=== PATIENT | female | born 1965 ===

== ENCOUNTER 2020-01-11 09:00 | Inpatient (IN) | payer MEDICARE, OTHER ==
[2020-01-11 11:10] VITALS: BP 114/73
[2020-01-11] MEDS ORDERED: Pneumococcal Vaccine 0.5 mL Vial IM ONE (12:53)
[2020-01-11] MEDS ORDERED: Maalox 30 mL Cup PO PRN (13:02)
[2020-01-11] MEDS ORDERED: Magnesium Hydroxide (MOM) 30 mL UDC PO PRN (13:02)
--- NOTE | 2020-01-11 17:33 | Psychiatric Evaluation ---
DATE OF SERVICE: HISTORY OF PRESENT ILLNESS: The patient is a 54-year-old female here for auditory hallucinations telling her to kill herself. The patient states that she has been off of her medications for about 4 days and that the voices were getting increasingly incessant and numerous. The patient states that she had planned on overdosing on all of her medications. The patient is somewhat evasive about her noncompliance, states that they were effective, but that she had stopped them because "I wanted to lose weight." MENTAL STATUS EXAMINATION: GENERAL APPEARANCE AND BEHAVIOR: The patient is resting comfortably in bed, not in acute distress, good eye contact, cooperative with interview. Speech is normal, rate, rhythm and tone. Mood and affect: The patient describes her mood as anxious and depressed. Affect is congruent. Thought process and thought content: The patient endorsing suicidal ideations to overdose on pills, endorsing command hallucinations telling her to do so. Insight and judgment is fair. DIAGNOSTIC IMPRESSION: Schizoaffective disorder by history. PLAN: Would recommend restarting patient on her home medications. The patient states that she was stable on Invega; however, it is not on formulary here, so we will change that to a Risperdal equivalent dose. JOB# [id number]
[2020-01-12] MEDS: Levothyroxine 0.088 Mg Tab PO SCH (06:48)
[2020-01-12] MEDS: Multivitamin Tab PO SCH (09:25)
--- NOTE | 2020-01-12 14:33 | Consultation ---
DATE OF CONSULTATION: CHIEF COMPLAINT: Hearing voices. 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 The patient was hearing voices. The patient was recently weaned off her Latuda and started having decompensation. PAST MEDICAL HISTORY: Jose Angel thyroiditis. PAST SURGICAL HISTORY: None. MEDICATIONS: Reviewed. ALLERGIES: None. PHYSICAL EXAMINATION: VITAL SIGNS: Temperature is 97.9, pulse 80, respirations 12, blood pressure is 100/64. HEENT: Normocephalic, atraumatic head exam. NECK: Supple. CARDIOVASCULAR: Regular rate and rhythm. LUNGS: Decreased breath sounds. ABDOMEN: Soft, nontender. EXTREMITIES: No edema, cyanosis or clubbing. Cranial nerve exam is grossly intact. ASSESSMENT AND PLAN: 1. Jose Angel's thyroiditis. 2. Delusional thinking. We will get a COVID test, CBC, chemistries and TSH. JOB# [id number] [facility]
[2020-01-12] MEDS ORDERED: Haloperidol Lactate 5 mg/mL 1mL Vial IM ONE (18:23)
[2020-01-12] MEDS ORDERED: Haloperidol Lactate 5 mg/mL 1mL Vial ONE (18:30)
--- NOTE | 2020-01-12 18:45 | Progress Notes ---
DATE: 01/12/2020 SUBJECTIVE: A 54-year-old female here for hallucinations and voices, was paranoid, feeling that people in her neighborhood were conspiring against her. She states she was going out on the streets and screaming to the neighbors to stop bothering her, harassing her. Stating the voices threaten her, talking about computer hacks, neighborhood people planning against her. History of bipolar, "the voices drive me crazy". Ten previous psychiatric admissions. History of bipolar versus schizoaffective, not rosario for safety. Extensive time spent with the patient, speaking with her, getting history. The patient was born in [place]. , no kids. History of being on Latuda, but noting it is not really helping her. History of THC use. Medications were reviewed. Labs reviewed. Vitals were reviewed. ASSESSMENT: The patient remains symptomatic, ongoing symptoms, safety concerns. PLAN: We will continue inpatient monitoring. The patient is still manic, still with voices, perceptual disturbances. We will restart dosing of Risperdal and add lithium to her regimen. JOB# [id number]
[2020-01-13 04:14] LABS: A1C 5.2 % (4.8-5.6)
[2020-01-13] MEDS: Levothyroxine 0.088 Mg Tab PO SCH (06:50)
[2020-01-13] MEDS ORDERED: risperiDONE 1 mg/mL 30 mL Bottle PO ONE (08:10)
[2020-01-13] MEDS: Multivitamin Tab PO SCH (08:53)
[2020-01-13 11:10] LABS: CHOLESTEROL 188 mg/dL (<200); LDL CHOLESTEROL 100 mg/dL (0-129); TRIGLYCERIDES 73 mg/dL (30-150)
--- NOTE | 2020-01-13 18:22 | Internal Medicine Prog Note ---
Internal Medicine Subjective - Subjective Service Date: 01/13/20 Patient seen and examined:: without staff Patient is:: awake Per staff patient has:: no adverse event, no episodes of fall Internal Medicine Objective - Results Recent Labs: Laboratory Last Values Triglycerides 73 mg/dL (30-150) 01/11/20 16:46 Cholesterol 188 mg/dL (<200) 01/11/20 16:46 LDL Cholesterol 100 mg/dL (0-129) 01/11/20 16:46 HDL Cholesterol 74 mg/dL (>55) 01/11/20 16:46 Coronavirus (PCR) Negative (Negative) 01/11/20 13:10 - Physical Exam Vitals and I&O: Vital Signs Temp 97.6 F 01/13/20 14:58 Pulse 62 01/13/20 14:58 Resp 20 01/13/20 14:58 BP 106/51 01/13/20 14:58 Pulse Ox 97 01/13/20 14:58 Intake & Output 01/12/20 01/13/20 01/13/20 18:59 06:59 18:59 Intake Total 1200 120 850 Balance 1200 120 850 Intake: Oral 1200 120 850 Other: # Voids 4 3 # Bowel Movements 1 0 Stool Characteristics Soft Soft Soft Formed Formed Formed Active Medications: Current Medications Acetaminophen (Tylenol) 650 mg PO Q4H PRN PRN Reason: Pain (Mild 1-3) Stop: 03/11/20 13:01 Al Hydrox/Mg Hydrox/Simethicone (Maalox) 30 ml PO Q4HR PRN PRN Reason: GI DISTRESS Stop: 03/11/20 13:01 Ibuprofen (Motrin) 400 mg PO Q4H PRN PRN Reason: Pain (Severe 7-10) Stop: 03/11/20 13:01 Levothyroxine Sodium (Synthroid) 0.088 mg PO QDAC KE Stop: 03/12/20 07:29 Last Admin: 01/13/20 06:50 Dose: 0.088 mg [place] Carbonate (Eskalith) 300 mg PO BID KE; Protocol Stop: 03/12/20 16:59 Last Admin: 01/13/20 16:17 Dose: 300 mg Lorazepam (Ativan) 0.5 mg PO Q4HR PRN; Protocol PRN Reason: Anxiety Stop: 02/10/20 13:01 Last Admin: 01/13/20 04:29 Dose: 0.5 mg Magnesium Hydroxide (Milk Of Magnesia) 30 ml PO HS PRN PRN Reason: Constipation Multivitamins/Vitamin C (Theragran) 1 tab PO DAILY KE Stop: 03/12/20 08:59 Last Admin: 01/13/20 08:53 Dose: 1 tab Nitrofurantoin Macrocrystals (Macrobid) 100 mg PO BID KE; Protocol Stop: 03/11/20 16:59 Last Admin: 01/13/20 16:17 Dose: 100 mg Risperidone 1 mg/ Risperidone (0.5 mg) 1.5 mg PO BID KE Stop: 03/13/20 16:59 Last Admin: 01/13/20 16:18 Dose: 1.5 mg Zolpidem Tartrate (Ambien) 5 mg PO HS PRN PRN Reason: Insomnia Stop: 03/11/20 13:01 Last Admin: 01/11/20 21:37 Dose: 5 mg General: weak HEENT: NC/AT (f), PERRLA Neck: Supple Lungs: CTAB Cardiovascular: RRR, Normal S1, Normal S2 Abdomen: soft Internal Medicine Assmt/Plan - Assessment Assessment: 1. Jose Angel's thyroiditis 2. Suicidal ideation - Plan Plan: CBC, CMP, TSH d/w r.n. reviewed complete medical records Nutritional Asmnt/Malnutr-PDOC - Dietary Evaluation Malnutrition Findings (Please click <Entered> for more info): Nutritional Asmnt/Malnutrition Start: 01/12/20 12: 06 Text: Status: Complete Freq: Protocol: Document 01/12/20 12:06 STEVIE (Rec: 01/12/20 12:10 STEVIE [id number]) Nutritional Asmnt/Malnutrition Patient General Information Nutritional Screening Low Risk Diagnosis Psychosis Pertinent Medical Hx/Surgical Hx Schizoaffective disorder Subjective Information Pt is a 54-year-old female admitted on 01/10 d/t auditory hallucinations telling her to kill herself. Pt is eating an estimated 87% x2d of meals Per Meal/Nutrition Activity Record. Dietary is currently providing an estimated 3170 kcals and 165 gm Pro, per Pt PO intake this is providing an estimated 2757 kcals and 143 gm Pro to meet 100+% kcal and 100+% Pro needs. Per nurse Tsang notes (01/10), pt. weighted 225 LBs before Electro-Convulsive Therapy in 2017, pt. lost 100 LBs from 2593-0053 and now currently weighs 125 LBs. Visited pt. in room today, helped pt. fill menu for next day, she was showing preference for making healthy food choices, and not overly concerned about wt gain . Anthropometrics HT: 53 WT: 125 LB (56.81 kg) BMI: 22.14 (Normal) GI/ Skin Integrity GI: WNL, Soft BM: Not Noted I/O: 810/Not Noted Skin: WNL, Intact Alirio: 20 Diet Order: Regular Estimated Energy Needs: ( Geriatric, CBW) 2118-1308 kcals (25-30 kcals/ kg) 60-70 g Pro (1.0-1.2 g/kg) 2528-7840 ml (25-30 ml/kg) Current Diet Order/ Nutrition Support Regular Pertinent Medications Maalox (PRN), Synthroid, MOM ( PRN), Theragran Pertinent Labs No pertinent labs at this time . Nutritional Hx/Data Height 1.6 m Height (Calculated Centimeters) 160.0 Current Weight (lbs) 56.699 kg Weight (Calculated Kilograms) 56.7 Weight (Calculated Grams) 20910.0 [place] Body Weight 115 LB (52.27 kg) % [place] Body Weight 109 Body Mass Index (BMI) 22.1 Weight Status Approriate GI Symptoms GI Symptoms None Last BM Not Noted Skin Integrity/Comment: WNL, Intact Alirio: 20 Current %PO Good (75-100%) Estimated Nutritional Goals BEE in Kcals: Using Current wt Calories/Kcals/Kg 25-30 Kcals Calculated 3772-6652 Protein: Using Current wt Protein g/k.0-1.2 Protein Calculated 60-70 Fluid: ml 6326-4971 ml (25-30 ml/kg) Nutritional Problem No current Nutrition Prob Problem No nutrition diagnosis at this time. Etiology N/A Signs/Symptoms: N/A Malnutrition Related to Morbid Obesity Malnutrition related to morbid obesity No Intervention/Recommendation Comments Continue regular diet as tolerated. Expected Outcomes/Goals Expected Outcomes/Goals 1. PO intake to continue to meet >75% of estimated nutritional needs. 2. Monitor PO intake, wt, nutrition related labs, and skin integrity. 3. F/U as low risk in 7-10 days, 01/18-01/21.
--- NOTE | 2020-01-13 22:11 | Progress Notes ---
DATE: 01/13/2020 SUBJECTIVE: This is a 54-year-old female, currently in the hospital, oriented, apparently still hearing voices, multiple voices, derogatory, history of bipolar disorder, history of lethal suicide attempt in 2016, overdosed, had to be given Narcan, history of PTSD, apparently not given a name for the first 6 years of her life, one by a nickname of Durga and that is what she changed her name to legally when she turned 17. The patient has a common law , very involved about her clothing. The patient was apparently yelling and screaming yesterday at the cameras, believing people are watching her, was noted to be aggressive, combative, currently on dosing of Risperdal, seems to be tolerating it fairly well, noting she has been on doses before, concerns about weight gain, also taking lithium. Medications were reviewed. Labs were reviewed. Vitals were reviewed. ASSESSMENT: The patient is symptomatic, still command voices telling her to harm self, paranoid. PLAN: We will continue to monitor. I will be increasing dosing of Risperdal today. Ongoing symptoms, safety concerns. JOB# [id number]
[2020-01-14] MEDS: Levothyroxine 0.088 Mg Tab PO SCH (07:05)
[2020-01-14] MEDS: Multivitamin Tab PO SCH (09:17)
--- NOTE | 2020-01-14 14:24 | Internal Medicine Prog Note ---
Internal Medicine Subjective - Subjective Service Date: 01/14/20 Patient seen and examined:: without staff Patient is:: awake Per staff patient has:: no adverse event, no episodes of fall Internal Medicine Objective - Results Recent Labs: Laboratory Last Values Triglycerides 73 mg/dL (30-150) 01/11/20 16:46 Cholesterol 188 mg/dL (<200) 01/11/20 16:46 LDL Cholesterol 100 mg/dL (0-129) 01/11/20 16:46 HDL Cholesterol 74 mg/dL (>55) 01/11/20 16:46 Coronavirus (PCR) Negative (Negative) 01/11/20 13:10 - Physical Exam Vitals and I&O: Vital Signs Temp 96.8 F 01/14/20 06:08 Pulse 72 01/14/20 06:08 Resp 16 01/14/20 08:00 BP 114/77 01/14/20 06:08 Pulse Ox 100 01/14/20 06:08 Intake & Output 01/13/20 01/14/20 01/14/20 18:59 06:59 18:59 Intake Total 850 240 Balance 850 240 Intake: Oral 850 240 Other: # Voids 3 # Bowel Movements 0 Stool Characteristics Soft Soft Soft Formed Formed Formed Active Medications: Current Medications Acetaminophen (Tylenol) 650 mg PO Q4H PRN PRN Reason: Pain (Mild 1-3) Stop: 03/11/20 13:01 Al Hydrox/Mg Hydrox/Simethicone (Maalox) 30 ml PO Q4HR PRN PRN Reason: GI DISTRESS Stop: 03/11/20 13:01 Ibuprofen (Motrin) 400 mg PO Q4H PRN PRN Reason: Pain (Severe 7-10) Stop: 03/11/20 13:01 Levothyroxine Sodium (Synthroid) 0.088 mg PO QDAC KE Stop: 03/12/20 07:29 Last Admin: 01/14/20 07:05 Dose: 0.088 mg [place] Carbonate (Eskalith) 300 mg PO BID KE; Protocol Stop: 03/12/20 16:59 Last Admin: 01/14/20 09:16 Dose: 300 mg Lorazepam (Ativan) 0.5 mg PO Q4HR PRN; Protocol PRN Reason: Anxiety Stop: 02/10/20 13:01 Last Admin: 01/14/20 04:45 Dose: 0.5 mg Magnesium Hydroxide (Milk Of Magnesia) 30 ml PO HS PRN PRN Reason: Constipation Multivitamins/Vitamin C (Theragran) 1 tab PO DAILY KE Stop: 03/12/20 08:59 Last Admin: 01/14/20 09:17 Dose: 1 tab Nitrofurantoin Macrocrystals (Macrobid) 100 mg PO BID KE; Protocol Stop: 03/11/20 16:59 Last Admin: 01/14/20 09:17 Dose: 100 mg Risperidone 1 mg/ Risperidone (0.5 mg) 1.5 mg PO BID KE Stop: 03/13/20 16:59 Last Admin: 01/14/20 09:17 Dose: 1.5 mg Zolpidem Tartrate (Ambien) 5 mg PO HS PRN PRN Reason: Insomnia Stop: 03/11/20 13:01 Last Admin: 01/13/20 21:26 Dose: 5 mg General: weak HEENT: NC/AT (f), PERRLA Neck: Supple Lungs: CTAB Cardiovascular: RRR, Normal S1, Normal S2 Abdomen: soft Extremities: clear Internal Medicine Assmt/Plan - Assessment Assessment: 1. Jose Angel's thyroiditis 2. Suicidal ideation - Plan Plan: continue synthroid d/w r.n. reviewed complete medical records Nutritional Asmnt/Malnutr-PDOC - Dietary Evaluation Malnutrition Findings (Please click <Entered> for more info): Nutritional Asmnt/Malnutrition Start: 01/12/20 12: 06 Text: Status: Complete Freq: Protocol: Document 01/12/20 12:06 STEVIE (Rec: 01/12/20 12:10 STEVIE [id number]) Nutritional Asmnt/Malnutrition Patient General Information Nutritional Screening Low Risk Diagnosis Psychosis Pertinent Medical Hx/Surgical Hx Schizoaffective disorder Subjective Information Pt is a 54-year-old female admitted on 01/10 d/t auditory hallucinations telling her to kill herself. Pt is eating an estimated 87% x2d of meals Per Meal/Nutrition Activity Record. Dietary is currently providing an estimated 3170 kcals and 165 gm Pro, per Pt PO intake this is providing an estimated 2757 kcals and 143 gm Pro to meet 100+% kcal and 100+% Pro needs. Per nurse Trinh notes (01/10), pt. weighted 225 LBs before Electro-Convulsive Therapy in 2017, pt. lost 100 LBs from 2656-2152 and now currently weighs 125 LBs. Visited pt. in room today, helped pt. fill menu for next day, she was showing preference for making healthy food choices, and not overly concerned about wt gain . Anthropometrics HT: 53 WT: 125 LB (56.81 kg) BMI: 22.14 (Normal) GI/ Skin Integrity GI: WNL, Soft BM: Not Noted I/O: 810/Not Noted Skin: WNL, Intact Alirio: 20 Diet Order: Regular Estimated Energy Needs: ( Geriatric, CBW) 6344-7120 kcals (25-30 kcals/ kg) 60-70 g Pro (1.0-1.2 g/kg) 1940-8698 ml (25-30 ml/kg) Current Diet Order/ Nutrition Support Regular Pertinent Medications Maalox (PRN), Synthroid, MOM ( PRN), Theragran Pertinent Labs No pertinent labs at this time . Nutritional Hx/Data Height 1.6 m Height (Calculated Centimeters) 160.0 Current Weight (lbs) 56.699 kg Weight (Calculated Kilograms) 56.7 Weight (Calculated Grams) 73908.0 [place] Body Weight 115 LB (52.27 kg) % [place] Body Weight 109 Body Mass Index (BMI) 22.1 Weight Status Approriate GI Symptoms GI Symptoms None Last BM Not Noted Skin Integrity/Comment: WNL, Intact Alirio: 20 Current %PO Good (75-100%) Estimated Nutritional Goals BEE in Kcals: Using Current wt Calories/Kcals/Kg 25-30 Kcals Calculated 8522-5943 Protein: Using Current wt Protein g/k.0-1.2 Protein Calculated 60-70 Fluid: ml 1246-7566 ml (25-30 ml/kg) Nutritional Problem No current Nutrition Prob Problem No nutrition diagnosis at this time. Etiology N/A Signs/Symptoms: N/A Malnutrition Related to Morbid Obesity Malnutrition related to morbid obesity No Intervention/Recommendation Comments Continue regular diet as tolerated. Expected Outcomes/Goals Expected Outcomes/Goals 1. PO intake to continue to meet >75% of estimated nutritional needs. 2. Monitor PO intake, wt, nutrition related labs, and skin integrity. 3. F/U as low risk in 7-10 days, 01/18-01/21.
[2020-01-14 18:17] LABS: % NEUTROPHILS 59.3 % (40-70); HEMATOCRIT 40.9 % (36-48); HEMOGLOBIN 13.3 g/dL (12.0-16.0); MEAN CORPUSCULAR HEMOGLOBIN 30 pg (27-31); MEAN CORPUSCULAR HGB CONC 33 % (32-36); MEAN CORPUSCULAR VOLUME 92 fL (79.0-98.0); PLATELET COUNT 264 K/uL (130-430); RED BLOOD COUNT 4.44 MIL/uL (4.2-6.2); RED CELL DISTRIBUTION WIDTH 13.9 % (9.0-15.0); WHITE BLOOD COUNT 4.9 K/uL (4.8-10.8)
[2020-01-14 18:18] LABS: BASOPHILS % (AUTO) 0.4 % (0.0-2.0); EOSINOPHILS # (AUTO) 0.1 K/uL (0.0-0.4); EOSINOPHILS % (AUTO) 1.8 % (0-4); LYMPHOCYTES # (AUTO) 1.4 K/uL (1.0-5.5); LYMPHOCYTES % (AUTO) 28.4 % (20.5-51.5); MONOCYTES # (AUTO) 0.5 K/uL (0.0-1.0); MONOCYTES % (AUTO) 10.1 % (1.7-9.3); NEUTROPHILS # (AUTO) 2.9 K/uL (1.8-7.7)
--- NOTE | 2020-01-14 20:03 | Progress Notes ---
DATE: 01/14/2020 SUBJECTIVE: This is a 54-year-old female, still with ongoing voices, perceptual disturbances. Attesting to lot of depression and anxiety, noting that the voices remain aggressive "they are still aggressive, but they are less." Decreased volume, less intensity. Feels medications are actually helping, happy with the Risperdal and lithium. Mostly withdrawn, keeps to self, ongoing perceptual disturbances, paranoias. Medications were reviewed. Labs reviewed. Vitals were reviewed. ASSESSMENT: A 54-year-old female, currently in the hospital, ongoing concerns for safety, severe psychotic symptoms. PLAN: We will continue to monitor, slowly titrate dosing of medications. [facility]# [id number]
[2020-01-15] MEDS: Levothyroxine 0.088 Mg Tab PO SCH (06:40)
[2020-01-15] MEDS: Multivitamin Tab PO SCH (08:15)
--- NOTE | 2020-01-15 19:36 | Internal Medicine Prog Note ---
Internal Medicine Subjective - Subjective Service Date: 01/15/20 Patient seen and examined:: without staff Patient is:: awake Per staff patient has:: no adverse event, no episodes of fall Internal Medicine Objective - Results Result Diagrams: 01/14/20 14:43 Recent Labs: Laboratory Last Values WBC 4.9 K/uL (4.8-10.8) 01/14/20 14:43 RBC 4.44 MIL/uL (4.2-6.2) 01/14/20 14:43 Hgb 13.3 g/dL (12.0-16.0) 01/14/20 14:43 Hct 40.9 % (36-48) 01/14/20 14:43 MCV 92 fL (79.0-98.0) 01/14/20 14:43 MCH 30 pg (27-31) 01/14/20 14:43 MCHC 33 % (32-36) 01/14/20 14:43 RDW 13.9 % (9.0-15.0) 01/14/20 14:43 Plt Count 264 K/uL (130-430) 01/14/20 14:43 MPV 8.4 fl (7.4-10.4) 01/14/20 14:43 Neut % (Auto) 59.3 % (40-70) 01/14/20 14:43 Lymph % (Auto) 28.4 % (20.5-51.5) 01/14/20 14:43 [place] % (Auto) 10.1 % (1.7-9.3) H 01/14/20 14:43 Eos % (Auto) 1.8 % (0-4) 01/14/20 14:43 Baso % (Auto) 0.4 % (0.0-2.0) 01/14/20 14:43 Neut # (Auto) 2.9 K/uL (1.8-7.7) 01/14/20 14:43 Lymph # (Auto) 1.4 K/uL (1.0-5.5) 01/14/20 14:43 Henry # (Auto) 0.5 K/uL (0.0-1.0) 01/14/20 14:43 Eos # (Auto) 0.1 K/uL (0.0-0.4) 01/14/20 14:43 Baso # (Auto) 0.0 K/uL (0.0-0.2) 01/14/20 14:43 Triglycerides 73 mg/dL (30-150) 01/11/20 16:46 Cholesterol 188 mg/dL (<200) 01/11/20 16:46 LDL Cholesterol 100 mg/dL (0-129) 01/11/20 16:46 HDL Cholesterol 74 mg/dL (>55) 01/11/20 16:46 TSH 4.53 uIU/ml (0.34-5.60) 01/14/20 14:43 Coronavirus (PCR) Negative (Negative) 01/11/20 13:10 - Physical Exam Vitals and I&O: Vital Signs Temp 98.6 F 01/15/20 15:29 Pulse 86 01/15/20 15:29 Resp 20 01/15/20 15:29 BP 110/66 01/15/20 15:29 Pulse Ox 98 01/15/20 15:29 Intake & Output 01/15/20 01/15/20 01/16/20 06:59 18:59 06:59 Intake Total 120 900 Balance 120 900 Intake: Oral 120 900 Other: # Voids 3 3 # Bowel Movements 1 Stool Characteristics Soft Soft Formed Formed Active Medications: Current Medications Acetaminophen (Tylenol) 650 mg PO Q4H PRN PRN Reason: Pain (Mild 1-3) Stop: 03/11/20 13:01 Al Hydrox/Mg Hydrox/Simethicone (Maalox) 30 ml PO Q4HR PRN PRN Reason: GI DISTRESS Stop: 03/11/20 13:01 Ibuprofen (Motrin) 400 mg PO Q4H PRN PRN Reason: Pain (Severe 7-10) Stop: 03/11/20 13:01 Levothyroxine Sodium (Synthroid) 0.088 mg PO QDAC KE Stop: 03/12/20 07:29 Last Admin: 01/15/20 06:40 Dose: 0.088 mg [place] Carbonate (Eskalith) 300 mg PO BID KE; Protocol Stop: 03/12/20 16:59 Last Admin: 01/15/20 16:57 Dose: 300 mg Lorazepam (Ativan) 0.5 mg PO Q4HR PRN; Protocol PRN Reason: Anxiety Stop: 02/10/20 13:01 Last Admin: 01/15/20 08:16 Dose: 0.5 mg Magnesium Hydroxide (Milk Of Magnesia) 30 ml PO HS PRN PRN Reason: Constipation Multivitamins/Vitamin C (Theragran) 1 tab PO DAILY KE Stop: 03/12/20 08:59 Last Admin: 01/15/20 08:15 Dose: 1 tab Nitrofurantoin Macrocrystals (Macrobid) 100 mg PO BID KE; Protocol Stop: 03/11/20 16:59 Last Admin: 01/15/20 16:57 Dose: 100 mg Risperidone (Risperdal) 2 mg PO BID KE Stop: 03/15/20 16:59 Last Admin: 01/15/20 16:57 Dose: 2 mg Zolpidem Tartrate (Ambien) 5 mg PO HS PRN PRN Reason: Insomnia Stop: 03/11/20 13:01 Last Admin: 01/15/20 02:40 Dose: 5 mg General: weak HEENT: NC/AT (f), PERRLA Neck: Supple Lungs: CTAB Cardiovascular: RRR, Normal S1, Normal S2 Abdomen: soft Extremities: clear Neurological: no change Internal Medicine Assmt/Plan - Assessment Assessment: 1. Jose Angel's thyroiditis 2. Suicidal ideation - Plan Plan: check cmp continue synthroid d/w r.n. reviewed complete medical records Nutritional Asmnt/Malnutr-PDOC - Dietary Evaluation Malnutrition Findings (Please click <Entered> for more info): Nutritional Asmnt/Malnutrition Start: 01/12/20 12: 06 Text: Status: Complete Freq: Protocol: Document 01/12/20 12:06 STEVIE (Rec: 01/12/20 12:10 STEVIE [id number]) Nutritional Asmnt/Malnutrition Patient General Information Nutritional Screening Low Risk Diagnosis Psychosis Pertinent Medical Hx/Surgical Hx Schizoaffective disorder Subjective Information Pt is a 54-year-old female admitted on 01/10 d/t auditory hallucinations telling her to kill herself. Pt is eating an estimated 87% x2d of meals Per Meal/Nutrition Activity Record. Dietary is currently providing an estimated 3170 kcals and 165 gm Pro, per Pt PO intake this is providing an estimated 2757 kcals and 143 gm Pro to meet 100+% kcal and 100+% Pro needs. Per nurse Tsang notes (01/10), pt. weighted 225 LBs before Electro-Convulsive Therapy in 2017, pt. lost 100 LBs from 1647-0261 and now currently weighs 125 LBs. Visited pt. in room today, helped pt. fill menu for next day, she was showing preference for making healthy food choices, and not overly concerned about wt gain . Anthropometrics HT: 53 WT: 125 LB (56.81 kg) BMI: 22.14 (Normal) GI/ Skin Integrity GI: WNL, Soft BM: Not Noted I/O: 810/Not Noted Skin: WNL, Intact Alirio: 20 Diet Order: Regular Estimated Energy Needs: ( Geriatric, CBW) 7244-1273 kcals (25-30 kcals/ kg) 60-70 g Pro (1.0-1.2 g/kg) 2450-7006 ml (25-30 ml/kg) Current Diet Order/ Nutrition Support Regular Pertinent Medications Maalox (PRN), Synthroid, MOM ( PRN), Theragran Pertinent Labs No pertinent labs at this time . Nutritional Hx/Data Height 1.6 m Height (Calculated Centimeters) 160.0 Current Weight (lbs) 56.699 kg Weight (Calculated Kilograms) 56.7 Weight (Calculated Grams) 38283.0 [place] Body Weight 115 LB (52.27 kg) % [place] Body Weight 109 Body Mass Index (BMI) 22.1 Weight Status Approriate GI Symptoms GI Symptoms None Last BM Not Noted Skin Integrity/Comment: WNL, Intact Alirio: 20 Current %PO Good (75-100%) Estimated Nutritional Goals BEE in Kcals: Using Current wt Calories/Kcals/Kg 25-30 Kcals Calculated 3905-3012 Protein: Using Current wt Protein g/k.0-1.2 Protein Calculated 60-70 Fluid: ml 3631-5009 ml (25-30 ml/kg) Nutritional Problem No current Nutrition Prob Problem No nutrition diagnosis at this time. Etiology N/A Signs/Symptoms: N/A Malnutrition Related to Morbid Obesity Malnutrition related to morbid obesity No Intervention/Recommendation Comments Continue regular diet as tolerated. Expected Outcomes/Goals Expected Outcomes/Goals 1. PO intake to continue to meet >75% of estimated nutritional needs. 2. Monitor PO intake, wt, nutrition related labs, and skin integrity. 3. F/U as low risk in 7-10 days, 8/3-01/21.
--- NOTE | 2020-01-15 22:25 | Progress Notes ---
DATE: 01/15/2020 SUBJECTIVE: A 54-year-old female in the hospital, ongoing distress, endorsing a high level of psychological distress, turmoil, linear. Ongoing voices, perceptual disturbances, not rosario for safety, noting the voices are very distressing, would like me to increase the Risperdal, noting she had been on Invega in the past. Fair sleep and appetite, mostly withdrawn, keeps to self. ASSESSMENT: The patient remains symptomatic, ongoing voices, intense voices. PLAN: I will be increasing her dosing of Risperdal today. JOB# [id number]
[2020-01-16] MEDS: Levothyroxine 0.088 Mg Tab PO SCH (06:45)
[2020-01-16] MEDS: Multivitamin Tab PO SCH (08:45)
--- NOTE | 2020-01-16 16:05 | Internal Medicine Prog Note ---
Internal Medicine Subjective - Subjective Service Date: 01/16/20 Patient seen and examined:: without staff Patient is:: awake Per staff patient has:: no adverse event, no episodes of fall Internal Medicine Objective - Results Result Diagrams: 01/14/20 14:43 Recent Labs: Laboratory Last Values WBC 4.9 K/uL (4.8-10.8) 01/14/20 14:43 RBC 4.44 MIL/uL (4.2-6.2) 01/14/20 14:43 Hgb 13.3 g/dL (12.0-16.0) 01/14/20 14:43 Hct 40.9 % (36-48) 01/14/20 14:43 MCV 92 fL (79.0-98.0) 01/14/20 14:43 MCH 30 pg (27-31) 01/14/20 14:43 MCHC 33 % (32-36) 01/14/20 14:43 RDW 13.9 % (9.0-15.0) 01/14/20 14:43 Plt Count 264 K/uL (130-430) 01/14/20 14:43 MPV 8.4 fl (7.4-10.4) 01/14/20 14:43 Neut % (Auto) 59.3 % (40-70) 01/14/20 14:43 Lymph % (Auto) 28.4 % (20.5-51.5) 01/14/20 14:43 [place] % (Auto) 10.1 % (1.7-9.3) H 01/14/20 14:43 Eos % (Auto) 1.8 % (0-4) 01/14/20 14:43 Baso % (Auto) 0.4 % (0.0-2.0) 01/14/20 14:43 Neut # (Auto) 2.9 K/uL (1.8-7.7) 01/14/20 14:43 Lymph # (Auto) 1.4 K/uL (1.0-5.5) 01/14/20 14:43 [place] # (Auto) 0.5 K/uL (0.0-1.0) 01/14/20 14:43 Eos # (Auto) 0.1 K/uL (0.0-0.4) 01/14/20 14:43 Baso # (Auto) 0.0 K/uL (0.0-0.2) 01/14/20 14:43 Triglycerides 73 mg/dL (30-150) 01/11/20 16:46 Cholesterol 188 mg/dL (<200) 01/11/20 16:46 LDL Cholesterol 100 mg/dL (0-129) 01/11/20 16:46 HDL Cholesterol 74 mg/dL (>55) 01/11/20 16:46 TSH 4.53 uIU/ml (0.34-5.60) 01/14/20 14:43 Coronavirus (PCR) Negative (Negative) 01/11/20 13:10 - Physical Exam Vitals and I&O: Vital Signs Temp 98.0 F 01/16/20 14:00 Pulse 70 01/16/20 14:00 Resp 18 01/16/20 14:00 BP 108/65 01/16/20 14:00 Pulse Ox 98 01/16/20 14:00 Intake & Output 01/15/20 01/16/20 01/16/20 18:59 06:59 18:59 Intake Total 900 Balance 900 Intake: Oral 900 Other: # Voids 3 # Bowel Movements 1 Stool Characteristics Soft Soft Formed Formed Active Medications: Current Medications Acetaminophen (Tylenol) 650 mg PO Q4H PRN PRN Reason: Pain (Mild 1-3) Stop: 03/11/20 13:01 Al Hydrox/Mg Hydrox/Simethicone (Maalox) 30 ml PO Q4HR PRN PRN Reason: GI DISTRESS Stop: 03/11/20 13:01 Ibuprofen (Motrin) 400 mg PO Q4H PRN PRN Reason: Pain (Severe 7-10) Stop: 03/11/20 13:01 Levothyroxine Sodium (Synthroid) 0.088 mg PO QDAC KE Stop: 03/12/20 07:29 Last Admin: 01/16/20 06:45 Dose: 0.088 mg [place] Carbonate (Eskalith) 300 mg PO BID KE; Protocol Stop: 03/12/20 16:59 Last Admin: 01/16/20 08:45 Dose: 300 mg Lorazepam (Ativan) 0.5 mg PO Q4HR PRN; Protocol PRN Reason: Anxiety Stop: 02/10/20 13:01 Last Admin: 01/16/20 13:54 Dose: 0.5 mg Multivitamins/Vitamin C (Theragran) 1 tab PO DAILY KE Stop: 03/12/20 08:59 Last Admin: 01/16/20 08:45 Dose: 1 tab Nitrofurantoin Macrocrystals (Macrobid) 100 mg PO BID KE; Protocol Stop: 03/11/20 16:59 Last Admin: 01/16/20 08:45 Dose: 100 mg Risperidone (Risperdal) 2 mg PO BID KE Stop: 03/15/20 16:59 Last Admin: 01/16/20 08:45 Dose: 2 mg Zolpidem Tartrate (Ambien) 5 mg PO HS PRN PRN Reason: Insomnia Stop: 03/11/20 13:01 Last Admin: 01/15/20 21:28 Dose: 5 mg General: weak HEENT: NC/AT (f), PERRLA Neck: Supple Lungs: CTAB Cardiovascular: RRR, Normal S1, Normal S2 Abdomen: soft Extremities: clear Neurological: no change Internal Medicine Assmt/Plan - Assessment Assessment: 1. Jose Angel's thyroiditis 2. Suicidal ideation - Plan Plan: continue synthroid d/w r.n. reviewed complete medical records Nutritional Asmnt/Malnutr-PDOC - Dietary Evaluation Malnutrition Findings (Please click <Entered> for more info): Nutritional Asmnt/Malnutrition Start: 01/12/20 12: 06 Text: Status: Complete Freq: Protocol: Document 01/12/20 12:06 STEVIE (Rec: 01/12/20 12:10 STEVIE [email or web address]) Nutritional Asmnt/Malnutrition Patient General Information Nutritional Screening Low Risk Diagnosis Psychosis Pertinent Medical Hx/Surgical Hx Schizoaffective disorder Subjective Information Pt is a 54-year-old female admitted on 01/10 d/t auditory hallucinations telling her to kill herself. Pt is eating an estimated 87% x2d of meals Per Meal/Nutrition Activity Record. Dietary is currently providing an estimated 3170 kcals and 165 gm Pro, per Pt PO intake this is providing an estimated 2757 kcals and 143 gm Pro to meet 100+% kcal and 100+% Pro needs. Per nurse Tsang notes (01/10), pt. weighted 225 LBs before Electro-Convulsive Therapy in 2016, pt. lost 100 LBs from 9808-8836 and now currently weighs 125 LBs. Visited pt. in room today, helped pt. fill menu for next day, she was showing preference for making healthy food choices, and not overly concerned about wt gain . Anthropometrics HT: 53 WT: 125 LB (56.81 kg) BMI: 22.14 (Normal) GI/ Skin Integrity GI: WNL, Soft BM: Not Noted I/O: 810/Not Noted Skin: WNL, Intact Alirio: 20 Diet Order: Regular Estimated Energy Needs: ( Geriatric, CBW) 2010-7274 kcals (25-30 kcals/ kg) 60-70 g Pro (1.0-1.2 g/kg) 2191-8367 ml (25-30 ml/kg) Current Diet Order/ Nutrition Support Regular Pertinent Medications Maalox (PRN), Synthroid, MOM ( PRN), Theragran Pertinent Labs No pertinent labs at this time . Nutritional Hx/Data Height 1.6 m Height (Calculated Centimeters) 160.0 Current Weight (lbs) 56.699 kg Weight (Calculated Kilograms) 56.7 Weight (Calculated Grams) 70774.0 [place] Body Weight 115 LB (52.27 kg) % [place] Body Weight 109 Body Mass Index (BMI) 22.1 Weight Status Approriate GI Symptoms GI Symptoms None Last BM Not Noted Skin Integrity/Comment: WNL, Intact Alirio: 20 Current %PO Good (75-100%) Estimated Nutritional Goals BEE in Kcals: Using Current wt Calories/Kcals/Kg 25-30 Kcals Calculated 5907-7631 Protein: Using Current wt Protein g/k.0-1.2 Protein Calculated 60-70 Fluid: ml 8227-4255 ml (25-30 ml/kg) Nutritional Problem No current Nutrition Prob Problem No nutrition diagnosis at this time. Etiology N/A Signs/Symptoms: N/A Malnutrition Related to Morbid Obesity Malnutrition related to morbid obesity No Intervention/Recommendation Comments Continue regular diet as tolerated. Expected Outcomes/Goals Expected Outcomes/Goals 1. PO intake to continue to meet >75% of estimated nutritional needs. 2. Monitor PO intake, wt, nutrition related labs, and skin integrity. 3. F/U as low risk in 7-10 days, 01/18-01/21.
--- NOTE | 2020-01-16 18:26 | Progress Notes ---
DATE: 01/16/2020 SUBJECTIVE: This is a 54-year-old female, still with ongoing voices, perceptual disturbances, strong voices that are at times command in nature, sometimes paranoid believing that people are watching her, the cameras are watching her. No outbursts. The increased dose of Risperdal seems to be helping. The patient asks questions about the medications. Extensive time was spent with the patient, answering her questions, talking about side effects. Fair sleep and appetite, mostly withdrawn, keeps to self, somewhat suspicious of others. Good family support. On the phone with family when I come to the unit in fact. Medications were reviewed. Labs were reviewed. Vitals were reviewed. ASSESSMENT: This is a 54-year-old female with ongoing voices, perceptual disturbances. PLAN: We will continue to monitor, continue to slowly titrate dosing of Risperdal. JOB# [id number]
[2020-01-17] MEDS: Levothyroxine 0.088 Mg Tab PO SCH (06:29)
[2020-01-17] MEDS: Multivitamin Tab PO SCH (08:33)
--- NOTE | 2020-01-17 18:26 | Progress Notes ---
DATE: 01/17/2020 SUBJECTIVE: A 54-year-old female coming in for auditory hallucinations telling her to kill herself, off of medications and was really hopeless, helpless, and despairing. The patient seems to be showing some signs and symptoms of improvement, but the voices are still really strong "it's like a loudspeaker", loud voices, perceptual disturbances, having a hard time controlling the voices, feeling really desperate for help." Currently on dosing of Risperdal, ongoing symptoms, safety concerns, voices are ____ her, telling her bad things. Fair sleep and appetite, generally linear. ASSESSMENT: The patient with ongoing psychotic symptoms, voices, concerns for safety, desperate for help, feeling suicidal at times because the voices are so intense. PLAN: We will continue inpatient monitoring. I will be increasing her dosing of Risperdal today. JOB# [id number]
[2020-01-18] MEDS: Levothyroxine 0.088 Mg Tab PO SCH (06:37)
--- NOTE | 2020-01-18 07:01 | Progress Notes ---
DATE: 01/18/2020 SUBJECTIVE: A 54-year-old female coming in for hallucinations, telling her to kill herself, still endorsing a high level of psychological distress, turmoil, still noting that the voices are very strong, noting that she was crying hysterically, felt that the staff were conspiring against her. "I thought they thought I was stupid." Suicidal thoughts to hurt herself with a gun, felt nurses were talking about her. Sleeping fairly well with some flare man awakenings, still endorsing a lot of distress, distress about the voices, distress that she will not get better. Extensive time was spent speaking with the patient trying to understand further about the content of the voices. Medications reviewed. Labs reviewed. Vitals were reviewed. Evaluated also for side effects. ASSESSMENT: A 54-year-old female, complex case, hard to control symptoms. Also, underlying medical problems including Jose Angel's thyroiditis, which could also be exacerbating some of her medical issues. Dr. Dumont is addressing this with Synthroid. PLAN: We will continue inpatient monitoring. Complex case. Extensive time. We will be increasing dosing of Risperdal. JOB# [id number]
[2020-01-18] MEDS: Multivitamin Tab PO SCH (08:59)
[2020-01-19] MEDS: Levothyroxine 0.088 Mg Tab PO SCH (06:30)
[2020-01-19] MEDS: Multivitamin Tab PO SCH (08:26)
--- NOTE | 2020-01-19 13:38 | Internal Medicine Prog Note ---
Internal Medicine Subjective - Subjective Service Date: 01/19/20 Patient seen and examined:: without staff Patient is:: awake Per staff patient has:: no adverse event, no episodes of fall Internal Medicine Objective - Results Result Diagrams: 01/14/20 14:43 Recent Labs: Laboratory Last Values WBC 4.9 K/uL (4.8-10.8) 01/14/20 14:43 RBC 4.44 MIL/uL (4.2-6.2) 01/14/20 14:43 Hgb 13.3 g/dL (12.0-16.0) 01/14/20 14:43 Hct 40.9 % (36-48) 01/14/20 14:43 MCV 92 fL (79.0-98.0) 01/14/20 14:43 MCH 30 pg (27-31) 01/14/20 14:43 MCHC 33 % (32-36) 01/14/20 14:43 RDW 13.9 % (9.0-15.0) 01/14/20 14:43 Plt Count 264 K/uL (130-430) 01/14/20 14:43 MPV 8.4 fl (7.4-10.4) 01/14/20 14:43 Neut % (Auto) 59.3 % (40-70) 01/14/20 14:43 Lymph % (Auto) 28.4 % (20.5-51.5) 01/14/20 14:43 [place] % (Auto) 10.1 % (1.7-9.3) H 01/14/20 14:43 Eos % (Auto) 1.8 % (0-4) 01/14/20 14:43 Baso % (Auto) 0.4 % (0.0-2.0) 01/14/20 14:43 Neut # (Auto) 2.9 K/uL (1.8-7.7) 01/14/20 14:43 Lymph # (Auto) 1.4 K/uL (1.0-5.5) 01/14/20 14:43 [place] # (Auto) 0.5 K/uL (0.0-1.0) 01/14/20 14:43 Eos # (Auto) 0.1 K/uL (0.0-0.4) 01/14/20 14:43 Baso # (Auto) 0.0 K/uL (0.0-0.2) 01/14/20 14:43 Triglycerides 73 mg/dL (30-150) 01/11/20 16:46 Cholesterol 188 mg/dL (<200) 01/11/20 16:46 LDL Cholesterol 100 mg/dL (0-129) 01/11/20 16:46 HDL Cholesterol 74 mg/dL (>55) 01/11/20 16:46 TSH 4.53 uIU/ml (0.34-5.60) 01/14/20 14:43 Coronavirus (PCR) Negative (Negative) 01/11/20 13:10 - Physical Exam Vitals and I&O: Vital Signs Temp 98 F 01/19/20 06:26 Pulse 82 01/19/20 06:26 Resp 18 01/19/20 06:26 BP 111/69 01/19/20 06:26 Pulse Ox 98 01/19/20 06:26 Intake & Output 01/18/20 01/19/20 01/19/20 18:59 06:59 18:59 Intake Total 400 580 Balance 400 580 Intake: Oral 400 580 Other: # Voids 3 # Bowel Movements 0 Stool Characteristics Soft Soft Formed Formed Active Medications: Current Medications Acetaminophen (Tylenol) 650 mg PO Q4H PRN PRN Reason: Pain (Mild 1-3) Stop: 03/11/20 13:01 Al Hydrox/Mg Hydrox/Simethicone (Maalox) 30 ml PO Q4HR PRN PRN Reason: GI DISTRESS Stop: 03/11/20 13:01 Ibuprofen (Motrin) 400 mg PO Q4H PRN PRN Reason: Pain (Severe 7-10) Stop: 03/11/20 13:01 Levothyroxine Sodium (Synthroid) 0.088 mg PO QDAC KE Stop: 03/12/20 07:29 Last Admin: 01/19/20 06:30 Dose: 0.088 mg [place] Carbonate (Eskalith) 300 mg PO BID KE; Protocol Stop: 03/12/20 16:59 Last Admin: 01/19/20 08:26 Dose: 300 mg Lorazepam (Ativan) 0.5 mg PO Q4HR PRN; Protocol PRN Reason: Anxiety Stop: 02/10/20 13:01 Last Admin: 01/19/20 13:21 Dose: 0.5 mg Multivitamins/Vitamin C (Theragran) 1 tab PO DAILY KE Stop: 03/12/20 08:59 Last Admin: 01/19/20 08:26 Dose: 1 tab Risperidone (Risperdal) 2.5 mg PO DAILY KE Stop: 03/17/20 08:59 Last Admin: 01/19/20 08:25 Dose: 2.5 mg Risperidone (Risperdal) 2.5 mg PO HS KE; Protocol Stop: 03/18/20 20:59 Last Admin: 01/18/20 20:22 Dose: 2.5 mg Zolpidem Tartrate (Ambien) 10 mg PO HS PRN PRN Reason: Insomnia Stop: 03/11/20 13:01 General: weak HEENT: NC/AT (f), PERRLA Neck: Supple Lungs: CTAB Cardiovascular: RRR, Normal S1, Normal S2 Abdomen: soft Extremities: clear Neurological: no change Internal Medicine Assmt/Plan - Assessment Assessment: 1. Jose Angel's thyroiditis 2. Suicidal ideation - Plan Plan: continue synthroid d/w r.n. reviewed complete medical records Nutritional Asmnt/Malnutr-PDOC - Dietary Evaluation Malnutrition Findings (Please click <Entered> for more info): Nutritional Asmnt/Malnutrition Start: 01/12/20 12: 06 Text: Status: Complete Freq: Protocol: Document 01/12/20 12:06 STEVIE (Rec: 01/12/20 12:10 STEVIE [id number]) Nutritional Asmnt/Malnutrition Patient General Information Nutritional Screening Low Risk Diagnosis Psychosis Pertinent Medical Hx/Surgical Hx Schizoaffective disorder Subjective Information Pt is a 54-year-old female admitted on 01/10 d/t auditory hallucinations telling her to kill herself. Pt is eating an estimated 87% x2d of meals Per Meal/Nutrition Activity Record. Dietary is currently providing an estimated 3170 kcals and 165 gm Pro, per Pt PO intake this is providing an estimated 2757 kcals and 143 gm Pro to meet 100+% kcal and 100+% Pro needs. Per nurse Tsang notes (01/10), pt. weighted 225 LBs before Electro-Convulsive Therapy in 2016, pt. lost 100 LBs from 2672-3808 and now currently weighs 125 LBs. Visited pt. in room today, helped pt. fill menu for next day, she was showing preference for making healthy food choices, and not overly concerned about wt gain . Anthropometrics HT: 53 WT: 125 LB (56.81 kg) BMI: 22.14 (Normal) GI/ Skin Integrity GI: WNL, Soft BM: Not Noted I/O: 810/Not Noted Skin: WNL, Intact Alirio: 20 Diet Order: Regular Estimated Energy Needs: ( Geriatric, CBW) 8733-0314 kcals (25-30 kcals/ kg) 60-70 g Pro (1.0-1.2 g/kg) 6475-0267 ml (25-30 ml/kg) Current Diet Order/ Nutrition Support Regular Pertinent Medications Maalox (PRN), Synthroid, MOM ( PRN), Theragran Pertinent Labs No pertinent labs at this time . Nutritional Hx/Data Height 1.6 m Height (Calculated Centimeters) 160.0 Current Weight (lbs) 56.699 kg Weight (Calculated Kilograms) 56.7 Weight (Calculated Grams) 46411.0 [place] Body Weight 115 LB (52.27 kg) % [place] Body Weight 109 Body Mass Index (BMI) 22.1 Weight Status Approriate GI Symptoms GI Symptoms None Last BM Not Noted Skin Integrity/Comment: WNL, Intact Alirio: 20 Current %PO Good (75-100%) Estimated Nutritional Goals BEE in Kcals: Using Current wt Calories/Kcals/Kg 25-30 Kcals Calculated 9940-3853 Protein: Using Current wt Protein g/k.0-1.2 Protein Calculated 60-70 Fluid: ml 8877-1431 ml (25-30 ml/kg) Nutritional Problem No current Nutrition Prob Problem No nutrition diagnosis at this time. Etiology N/A Signs/Symptoms: N/A Malnutrition Related to Morbid Obesity Malnutrition related to morbid obesity No Intervention/Recommendation Comments Continue regular diet as tolerated. Expected Outcomes/Goals Expected Outcomes/Goals 1. PO intake to continue to meet >75% of estimated nutritional needs. 2. Monitor PO intake, wt, nutrition related labs, and skin integrity. 3. F/U as low risk in 7-10 days, 01/18-01/21.
--- NOTE | 2020-01-19 17:44 | Progress Notes ---
DATE: 01/19/2020 SUBJECTIVE: This is a 54-year-old female, currently in the hospital, seems to be generally doing better. Medications seem to be helping. Still with ongoing voices, perceptual disturbances, had a hard time sleeping last night, would like me to increase her dosing of Ambien, stating that she only got about 3 hours of sleep. Ongoing and severe perceptual disturbances, voices. Voices are loud, ongoing. Currently on dosing of Risperdal and will be continuing her dosing of lithium as well. Medications were reviewed. Labs reviewed. Vitals were reviewed. ASSESSMENT: The patient remains symptomatic, ongoing psychotic symptoms, increase dosing of Ambien. JOB# [id number]
[2020-01-20] MEDS: Levothyroxine 0.088 Mg Tab PO SCH (06:30)
[2020-01-20] MEDS: Multivitamin Tab PO SCH (09:14)
--- NOTE | 2020-01-20 17:27 | Progress Notes ---
DATE: 01/20/2020 SUBJECTIVE: The patient remains symptomatic, ongoing symptoms, psychotic symptoms, voices, perceptual disturbances, paranoia, is fearful, very fearful of others, still hearing voices, very loud, having a lot of distress from them. On a positive note some improvement noted, voices are lessening, decreasing to some extent. She also slept a little better with the Ambien. Extensive time was spent with the patient. Medications were reviewed. Labs reviewed. Vitals were reviewed. PLAN: I will be increasing her dosing of Risperdal. JOB# [id number]
--- NOTE | 2020-01-20 17:59 | Internal Medicine Prog Note ---
Internal Medicine Subjective - Subjective Service Date: 01/20/20 Patient seen and examined:: without staff Patient is:: awake Per staff patient has:: no adverse event, no episodes of fall Internal Medicine Objective - Results Result Diagrams: 01/14/20 14:43 Recent Labs: Laboratory Last Values WBC 4.9 K/uL (4.8-10.8) 01/14/20 14:43 RBC 4.44 MIL/uL (4.2-6.2) 01/14/20 14:43 Hgb 13.3 g/dL (12.0-16.0) 01/14/20 14:43 Hct 40.9 % (36-48) 01/14/20 14:43 MCV 92 fL (79.0-98.0) 01/14/20 14:43 MCH 30 pg (27-31) 01/14/20 14:43 MCHC 33 % (32-36) 01/14/20 14:43 RDW 13.9 % (9.0-15.0) 01/14/20 14:43 Plt Count 264 K/uL (130-430) 01/14/20 14:43 MPV 8.4 fl (7.4-10.4) 01/14/20 14:43 Neut % (Auto) 59.3 % (40-70) 01/14/20 14:43 Lymph % (Auto) 28.4 % (20.5-51.5) 01/14/20 14:43 [place] % (Auto) 10.1 % (1.7-9.3) H 01/14/20 14:43 Eos % (Auto) 1.8 % (0-4) 01/14/20 14:43 Baso % (Auto) 0.4 % (0.0-2.0) 01/14/20 14:43 Neut # (Auto) 2.9 K/uL (1.8-7.7) 01/14/20 14:43 Lymph # (Auto) 1.4 K/uL (1.0-5.5) 01/14/20 14:43 [place] # (Auto) 0.5 K/uL (0.0-1.0) 01/14/20 14:43 Eos # (Auto) 0.1 K/uL (0.0-0.4) 01/14/20 14:43 Baso # (Auto) 0.0 K/uL (0.0-0.2) 01/14/20 14:43 Triglycerides 73 mg/dL (30-150) 01/11/20 16:46 Cholesterol 188 mg/dL (<200) 01/11/20 16:46 LDL Cholesterol 100 mg/dL (0-129) 01/11/20 16:46 HDL Cholesterol 74 mg/dL (>55) 01/11/20 16:46 TSH 4.53 uIU/ml (0.34-5.60) 01/14/20 14:43 Coronavirus (PCR) Negative (Negative) 01/11/20 13:10 - Physical Exam Vitals and I&O: Vital Signs Temp 98.6 F 01/20/20 14:00 Pulse 78 01/20/20 14:00 Resp 18 01/20/20 14:00 BP 104/66 01/20/20 14:00 Pulse Ox 96 01/20/20 14:00 Intake & Output 01/19/20 01/20/20 01/20/20 18:59 06:59 18:59 Intake Total 8787 294 9374 Output Total 3 Balance 0912 075 6253 Intake: Oral 1267 162 2408 Output: Urine 3 Other: # Voids 3 1 # Bowel Movements 0 Stool Characteristics Soft Formed Active Medications: Current Medications Acetaminophen (Tylenol) 650 mg PO Q4H PRN PRN Reason: Pain (Mild 1-3) Stop: 03/11/20 13:01 Al Hydrox/Mg Hydrox/Simethicone (Maalox) 30 ml PO Q4HR PRN PRN Reason: GI DISTRESS Stop: 03/11/20 13:01 Ibuprofen (Motrin) 400 mg PO Q4H PRN PRN Reason: Pain (Severe 7-10) Stop: 03/11/20 13:01 Levothyroxine Sodium (Synthroid) 0.088 mg PO QDAC KE Stop: 03/12/20 07:29 Last Admin: 01/20/20 06:30 Dose: 0.088 mg [place] Carbonate (Eskalith) 300 mg PO BID KE; Protocol Stop: 03/12/20 16:59 Last Admin: 01/20/20 16:47 Dose: 300 mg Lorazepam (Ativan) 0.5 mg PO Q4HR PRN; Protocol PRN Reason: Anxiety Stop: 02/10/20 13:01 Last Admin: 01/20/20 09:14 Dose: 0.5 mg Multivitamins/Vitamin C (Theragran) 1 tab PO DAILY KE Stop: 03/12/20 08:59 Last Admin: 01/20/20 09:14 Dose: 1 tab Risperidone (Risperdal) 2.5 mg PO DAILY KE Stop: 03/17/20 08:59 Last Admin: 01/20/20 09:13 Dose: 2.5 mg Risperidone (Risperdal) 3 mg PO HS KE; Protocol Stop: 03/20/20 20:59 Zolpidem Tartrate (Ambien) 10 mg PO HS PRN PRN Reason: Insomnia Stop: 03/11/20 13:01 Last Admin: 01/19/20 21:12 Dose: 10 mg General: weak HEENT: NC/AT (f), PERRLA Neck: Supple Lungs: CTAB Cardiovascular: RRR, Normal S1, Normal S2 Abdomen: soft Extremities: clear Neurological: no change Internal Medicine Assmt/Plan - Assessment Assessment: 1. Jose Angel's thyroiditis 2. Suicidal ideation - Plan Plan: continue synthroid d/w r.n. reviewed complete medical records Nutritional Asmnt/Malnutr-PDOC - Dietary Evaluation Malnutrition Findings (Please click <Entered> for more info): Nutritional Asmnt/Malnutrition Start: 01/12/20 12: 06 Text: Status: Complete Freq: Protocol: Document 01/12/20 12:06 STEVIE (Rec: 01/12/20 12:10 STEVIE [email or web address]) Nutritional Asmnt/Malnutrition Patient General Information Nutritional Screening Low Risk Diagnosis Psychosis Pertinent Medical Hx/Surgical Hx Schizoaffective disorder Subjective Information Pt is a 54-year-old female admitted on 01/10 d/t auditory hallucinations telling her to kill herself. Pt is eating an estimated 87% x2d of meals Per Meal/Nutrition Activity Record. Dietary is currently providing an estimated 3170 kcals and 165 gm Pro, per Pt PO intake this is providing an estimated 2757 kcals and 143 gm Pro to meet 100+% kcal and 100+% Pro needs. Per nurse Tsang notes (01/10), pt. weighted 225 LBs before Electro-Convulsive Therapy in 2016, pt. lost 100 LBs from 3180-9687 and now currently weighs 125 LBs. Visited pt. in room today, helped pt. fill menu for next day, she was showing preference for making healthy food choices, and not overly concerned about wt gain . Anthropometrics HT: 53 WT: 125 LB (56.81 kg) BMI: 22.14 (Normal) GI/ Skin Integrity GI: WNL, Soft BM: Not Noted I/O: 810/Not Noted Skin: WNL, Intact Alirio: 20 Diet Order: Regular Estimated Energy Needs: ( Geriatric, CBW) 0134-6963 kcals (25-30 kcals/ kg) 60-70 g Pro (1.0-1.2 g/kg) 1051-7509 ml (25-30 ml/kg) Current Diet Order/ Nutrition Support Regular Pertinent Medications Maalox (PRN), Synthroid, MOM ( PRN), Theragran Pertinent Labs No pertinent labs at this time . Nutritional Hx/Data Height 1.6 m Height (Calculated Centimeters) 160.0 Current Weight (lbs) 56.699 kg Weight (Calculated Kilograms) 56.7 Weight (Calculated Grams) 69270.0 [place] Body Weight 115 LB (52.27 kg) % [place] Body Weight 109 Body Mass Index (BMI) 22.1 Weight Status Approriate GI Symptoms GI Symptoms None Last BM Not Noted Skin Integrity/Comment: WNL, Intact Alirio: 20 Current %PO Good (75-100%) Estimated Nutritional Goals BEE in Kcals: Using Current wt Calories/Kcals/Kg 25-30 Kcals Calculated 7985-0183 Protein: Using Current wt Protein g/k.0-1.2 Protein Calculated 60-70 Fluid: ml 4053-9963 ml (25-30 ml/kg) Nutritional Problem No current Nutrition Prob Problem No nutrition diagnosis at this time. Etiology N/A Signs/Symptoms: N/A Malnutrition Related to Morbid Obesity Malnutrition related to morbid obesity No Intervention/Recommendation Comments Continue regular diet as tolerated. Expected Outcomes/Goals Expected Outcomes/Goals 1. PO intake to continue to meet >75% of estimated nutritional needs. 2. Monitor PO intake, wt, nutrition related labs, and skin integrity. 3. F/U as low risk in 7-10 days, 01/18-01/21.
[2020-01-21] MEDS: Levothyroxine 0.088 Mg Tab PO SCH (06:37)
[2020-01-21] MEDS: Multivitamin Tab PO SCH (08:15)
--- NOTE | 2020-01-21 13:26 | Internal Medicine Prog Note ---
Internal Medicine Subjective - Subjective Service Date: 01/21/20 Patient seen and examined:: without staff Patient is:: awake Per staff patient has:: no adverse event, no episodes of fall Internal Medicine Objective - Results Result Diagrams: 01/14/20 14:43 Recent Labs: Laboratory Last Values WBC 4.9 K/uL (4.8-10.8) 01/14/20 14:43 RBC 4.44 MIL/uL (4.2-6.2) 01/14/20 14:43 Hgb 13.3 g/dL (12.0-16.0) 01/14/20 14:43 Hct 40.9 % (36-48) 01/14/20 14:43 MCV 92 fL (79.0-98.0) 01/14/20 14:43 MCH 30 pg (27-31) 01/14/20 14:43 MCHC 33 % (32-36) 01/14/20 14:43 RDW 13.9 % (9.0-15.0) 01/14/20 14:43 Plt Count 264 K/uL (130-430) 01/14/20 14:43 MPV 8.4 fl (7.4-10.4) 01/14/20 14:43 Neut % (Auto) 59.3 % (40-70) 01/14/20 14:43 Lymph % (Auto) 28.4 % (20.5-51.5) 01/14/20 14:43 [place] % (Auto) 10.1 % (1.7-9.3) H 01/14/20 14:43 Eos % (Auto) 1.8 % (0-4) 01/14/20 14:43 Baso % (Auto) 0.4 % (0.0-2.0) 01/14/20 14:43 Neut # (Auto) 2.9 K/uL (1.8-7.7) 01/14/20 14:43 Lymph # (Auto) 1.4 K/uL (1.0-5.5) 01/14/20 14:43 [place] # (Auto) 0.5 K/uL (0.0-1.0) 01/14/20 14:43 Eos # (Auto) 0.1 K/uL (0.0-0.4) 01/14/20 14:43 Baso # (Auto) 0.0 K/uL (0.0-0.2) 01/14/20 14:43 Triglycerides 73 mg/dL (30-150) 01/11/20 16:46 Cholesterol 188 mg/dL (<200) 01/11/20 16:46 LDL Cholesterol 100 mg/dL (0-129) 01/11/20 16:46 HDL Cholesterol 74 mg/dL (>55) 01/11/20 16:46 TSH 4.53 uIU/ml (0.34-5.60) 01/14/20 14:43 Coronavirus (PCR) Negative (Negative) 01/11/20 13:10 - Physical Exam Vitals and I&O: Vital Signs Temp 97.7 F 01/21/20 05:54 Pulse 77 01/21/20 05:54 Resp 18 01/21/20 05:54 BP 102/73 01/21/20 05:54 Pulse Ox 98 01/21/20 05:54 Intake & Output 01/20/20 01/21/20 01/21/20 18:59 06:59 18:59 Intake Total 1300 120 Output Total 3 Balance 1297 120 Intake: Oral 1300 120 Output: Urine 3 Other: # Voids 1 3 Stool Characteristics Soft Soft Soft Formed Formed Formed Active Medications: Current Medications Acetaminophen (Tylenol) 650 mg PO Q4H PRN PRN Reason: Pain (Mild 1-3) Stop: 03/11/20 13:01 Al Hydrox/Mg Hydrox/Simethicone (Maalox) 30 ml PO Q4HR PRN PRN Reason: GI DISTRESS Stop: 03/11/20 13:01 Ibuprofen (Motrin) 400 mg PO Q4H PRN PRN Reason: Pain (Severe 7-10) Stop: 03/11/20 13:01 Levothyroxine Sodium (Synthroid) 0.088 mg PO QDAC KE Stop: 03/12/20 07:29 Last Admin: 01/21/20 06:37 Dose: 0.088 mg [place] Carbonate (Eskalith) 300 mg PO BID KE; Protocol Stop: 03/12/20 16:59 Last Admin: 01/21/20 08:16 Dose: 300 mg Lorazepam (Ativan) 0.5 mg PO Q4HR PRN; Protocol PRN Reason: Anxiety Stop: 02/10/20 13:01 Last Admin: 01/21/20 12:06 Dose: 0.5 mg Multivitamins/Vitamin C (Theragran) 1 tab PO DAILY KE Stop: 03/12/20 08:59 Last Admin: 01/21/20 08:15 Dose: 1 tab Risperidone (Risperdal) 3 mg PO BID KE; Protocol Stop: 03/21/20 16:59 Zolpidem Tartrate (Ambien) 10 mg PO HS PRN PRN Reason: Insomnia Stop: 03/11/20 13:01 Last Admin: 01/20/20 20:44 Dose: 10 mg General: weak HEENT: NC/AT (f), PERRLA Neck: Supple Lungs: CTAB Cardiovascular: RRR, Normal S1, Normal S2 Abdomen: soft Extremities: clear Neurological: no change Internal Medicine Assmt/Plan - Assessment Assessment: 1. Jose Angel's thyroiditis 2. Suicidal ideation - Plan Plan: continue synthroid d/w r.n. reviewed complete medical records Nutritional Asmnt/Malnutr-PDOC - Dietary Evaluation Malnutrition Findings (Please click <Entered> for more info): Nutritional Asmnt/Malnutrition Start: 01/12/20 12: 06 Text: Status: Complete Freq: Protocol: Document 01/12/20 12:06 STEVIE (Rec: 01/12/20 12:10 STEVIE [id number]) Nutritional Asmnt/Malnutrition Patient General Information Nutritional Screening Low Risk Diagnosis Psychosis Pertinent Medical Hx/Surgical Hx Schizoaffective disorder Subjective Information Pt is a 54-year-old female admitted on 01/10 d/t auditory hallucinations telling her to kill herself. Pt is eating an estimated 87% x2d of meals Per Meal/Nutrition Activity Record. Dietary is currently providing an estimated 3170 kcals and 165 gm Pro, per Pt PO intake this is providing an estimated 2757 kcals and 143 gm Pro to meet 100+% kcal and 100+% Pro needs. Per nurse Tsang notes (01/10), pt. weighted 225 LBs before Electro-Convulsive Therapy in 2016, pt. lost 100 LBs from [id number] and now currently weighs 125 LBs. Visited pt. in room today, helped pt. fill menu for next day, she was showing preference for making healthy food choices, and not overly concerned about wt gain . Anthropometrics HT: 53 WT: 125 LB (56.81 kg) BMI: 22.14 (Normal) GI/ Skin Integrity GI: WNL, Soft BM: Not Noted I/O: 810/Not Noted Skin: WNL, Intact Alirio: 20 Diet Order: Regular Estimated Energy Needs: ( Geriatric, CBW) 5481-5926 kcals (25-30 kcals/ kg) 60-70 g Pro (1.0-1.2 g/kg) 8364-7883 ml (25-30 ml/kg) Current Diet Order/ Nutrition Support Regular Pertinent Medications Maalox (PRN), Synthroid, MOM ( PRN), Theragran Pertinent Labs No pertinent labs at this time . Nutritional Hx/Data Height 1.6 m Height (Calculated Centimeters) 160.0 Current Weight (lbs) 56.699 kg Weight (Calculated Kilograms) 56.7 Weight (Calculated Grams) 78333.0 [place] Body Weight 115 LB (52.27 kg) % [place] Body Weight 109 Body Mass Index (BMI) 22.1 Weight Status Approriate GI Symptoms GI Symptoms None Last BM Not Noted Skin Integrity/Comment: WNL, Intact Alirio: 20 Current %PO Good (75-100%) Estimated Nutritional Goals BEE in Kcals: Using Current wt Calories/Kcals/Kg 25-30 Kcals Calculated 6502-7928 Protein: Using Current wt Protein g/k.0-1.2 Protein Calculated 60-70 Fluid: ml 5745-3890 ml (25-30 ml/kg) Nutritional Problem No current Nutrition Prob Problem No nutrition diagnosis at this time. Etiology N/A Signs/Symptoms: N/A Malnutrition Related to Morbid Obesity Malnutrition related to morbid obesity No Intervention/Recommendation Comments Continue regular diet as tolerated. Expected Outcomes/Goals Expected Outcomes/Goals 1. PO intake to continue to meet >75% of estimated nutritional needs. 2. Monitor PO intake, wt, nutrition related labs, and skin integrity. 3. F/U as low risk in 7-10 days, 01/18-01/21.
--- NOTE | 2020-01-21 17:52 | Progress Notes ---
DATE: 01/21/2020 SUBJECTIVE: This is a 54-year-old female, currently in the hospital, ongoing voices, perceptual disturbances; however, these voices are lessening. She is noting that they are less intense. She is less irritable, less short tempered, noting her mood is "better." Fair sleep and appetite. Staff noting she has been generally calm, cooperative, friendly, sleeping better at night. Happy with the Ambien. The patient noting that she is more optimistic, hopeful, wants to follow up when she leaves the hospital for continuation of care. Medications were reviewed. Labs reviewed. Vitals were reviewed. ASSESSMENT: A 54-year-old female with improving optimistic, hopeful, happy that the medications are helping her. PLAN: We will continue to monitor. We will err on the side of caution and monitor for further 24 hours. I will be increasing and optimizing her dosing of Risperdal. Her can come pick her up upon discharge. [facility]# [id number]
[2020-01-22] MEDS: Levothyroxine 0.088 Mg Tab PO SCH (06:30)
[2020-01-22] MEDS: Multivitamin Tab PO SCH (08:14)
--- NOTE | 2020-01-22 12:54 | Discharge Summary ---
DATE OF DISCHARGE: 01/22/2020 HISTORY OF PRESENT ILLNESS: A 54-year-old female here for severe psychotic symptoms, paranoias, loud voices, command voices, not rosario for safety, poor med compliance, psychotic and mood decompensation. PAST PSYCHIATRIC HISTORY: Schizoaffective. FAMILY HISTORY: Noncontributory. SOCIAL HISTORY: Living with , good family support, stable living environment. No drugs. MEDICATIONS: Noted. MENTAL STATUS EXAMINATION: Please see full psych eval for details. MEDICAL: Please see full H and P. HOSPITAL COURSE: After initial assessment, the patient's medications were adjusted, titrated. [place] [employer] was initiated. Risperdal started, increased. Over the course of treatment, mood improved, affect improved. Better control of any psychotic symptoms. No overt agitation or escalation of behaviors, any suicidal thoughts were dissipating, decreasing; voices dissipating, decreasing. CONDITION UPON DISCHARGE: Improved, better ADLs. Fair eye contact. Mood " a lot better," linear. No SI, no HI, no intent, no plan, no overt psychotic symptoms. Better insight. DISCHARGE DIAGNOSIS: Schizoaffective. PROGNOSIS: The patient follows up with outpatient mental health services and remains compliant with treatment. Prognosis will improve, otherwise guarded. [facility]# [id number]
== END 2020-01-22 15:15 | disposition home or self-care (01) | DRG 885 ==
LOC: GERO 09:00 → UNDOADMIN 09:30 → GERO 09:30
PROVIDERS: ADMIT Psychiatry & Neurology Psychiatry; ATTEND Psychiatry & Neurology Psychiatry
DX: F25.9 Schizoaffective disorder, unspecified (principal); R45.851 Suicidal ideations; E06.3 Autoimmune thyroiditis; F29 Unspecified psychosis not due to a substance or known physiological condition; Z20.828 Contact with and (suspected) exposure to other viral communicable diseases
CPT/HCPCS: 36415-UA; 80061-TC; 83036-90; 84443-TC; 85025-TC; G0410; J1200; J1630; J2060; U0003-CS